=== PATIENT | female | born 1930 | race Caucasian/White ===

== ENCOUNTER 2016-05-17 08:43 | Emergency (ER) | payer OTHER ==
[~2016-05-17] VITALS: Ht 154.9 cm; Wt 61.2 kg
--- NOTE | ~2016-05-17 | EKG ---
[place] [address] [address] [facility] [employer] [place] [address] ELECTROCARDIOGRAM REPORT Name: STUART YANG [id number] Admission: 05/17/16 Attend Phys: Discharge: 05/17/16 Date of : 32 Report #: [id number] THIS REPORT FOR: //name// [facility] ED Test Date: 2016-05-17 Test Time: 10:04:26 Pat Name: STUART YANG Department: Room: Gender: F Cat Breeder: maira : 1930 Requested By: Glenn Bonilla Order Number: [id number] MD: Bright Wagoner Measurements Intervals [place] Rate: 78 P: 48 UT: 166 QRS: -22 QRSD: 98 T: 52 QT: 370 QTc: 422 Interpretive Statements Sinus rhythm Left ventricular hypertrophy Compared to ECG 04/12/2016 14:33:37 Left ventricular hypertrophy now present Sinus tachycardia no longer present Ventricular premature complex(es) no longer present Electronically Signed On 05-18-2016 8:16:53 CDT by Bright Wagoner [email or web address] <ELECTRONICALLY SIGNED> By: Bright Wagoner MD, [facility] 05/18/16 0816 1004 1004 Bright Wagoner MD, [facility] /EPI
[~2016-05-17 08:43] MED LIST: ALBUTEROL2.5 MG/31 INH; ASPIR 8181 MG PO; CARVEDILOL3.125 MG PO; CIPRO250 M1 PO; COLACE100 MG PO; CRANBERRY405 MG PO; CYMBALTA30 MG PO; DAILY VITE1 EACH PO; DUONEB 2.5-0.5 M3 ML INH; ENOXAPARIN30 MG/0.1 SUBQ; FENTANYL PA25 MCG/HR TRANSDERM; IPRAT-ALBUT 0.5-3 ML IH; KLOR-CON 1010 MEQ PO; LASIX 20 MG TAB20 MG PO; LEVAQUIN 500 M500 M9 PO; LIDODERM 5%1 PATC1 TD; LYRICA 75 MG CA75 MG PO; MACROBID 100 M100 M2 PO; MUCINEX TA600 MG/TA2 PO; NEURONTIN 300300 M1 PO; NEURONTIN300 MG PO; NORVASC5 MG PO; NYSTATIN1 EA10; ONDANSETRON HCL4 M2 PO; OXCARBAZEPINE150 MG PO; OYSTER SHELL C500 MG PO; PEG OINTMENT B454 GM MC; PEG3350510 GM PO; PRAVACHOL20 MG PO; PREDNISONE 10 M10 MG PO; PRILOSEC20 MG PO; PULMICORT0.5 MG/21 INH; SENOKOT-S1 TA1 PO; TRAMADOL 50 MG50 MG PO; TYLENOL325 MG PO; VESICARE 5 MG TA5 MG PO; ZINC OXIDE56.7 GM
[2016-05-17 09:14] LABS: ABSOLUTE NEUTROPHILS 6.5 thou/uL (1.4-8.2); BASOPHILS 0.7 % (0.0-2.0); EOSINOPHILS 0.8 % (0.0-3.0); HEMATOCRIT 36.5 % (37.0-47.0); HEMOGLOBIN 12.1 gm/dL (12.0-15.0); LYMPHOCYTES 10.7 % (24.0-44.0); MCH 29.9 pg (26.0-34.0); MCHC 33.1 g/dL (28.0-37.0); MCV 90.4 fL (80.0-100.0); MONOCYTES 9.1 % (1.0-8.0); PLATELET COUNT 284 thou/uL (150-400); POLYS 78.7 % (36.0-66.0); RBC 4.04 mil/uL (4.20-5.00); RDW 18.3 % (10.5-14.5); WBC 8.3 thou/uL (4.0-11.0)
[2016-05-17 09:15] LABS: MANUAL DIFF NO
[2016-05-17 09:20] LABS: ANION GAP 3 mmol/L (7-16); BUN 22 mg/dL (7-18); CALCIUM 8.6 mg/dL (8.5-10.1); CHLORIDE 106 mmol/L (98-107); CO2 33 mmol/L (21-32); CREATININE 1.1 mg/dL (0.6-1.3); GLUCOSE 105 mg/dL (70-99); POTASSIUM 4.3 mmol/L (3.5-5.1); SODIUM 142 mmol/L (136-145)
[2016-05-17 09:27] LABS: ALBUMIN 2.4 g/dL (3.4-5.0); ALKALINE PHOSPHATASE 127 U/L (46-116); MAGNESIUM 2.1 mg/dL (1.8-2.4); SGOT 14 U/L (15-37); SGPT 13 U/L (30-65); TOTAL BILIRUBIN 0.2 mg/dL (<0.1-1.0); TOTAL PROTEIN 6.8 g/dL (6.4-8.2); TROPONIN-I < 0.04 ng/mL (<0.04-0.07)
[2016-05-17 10:03] LABS: URINE BILIRUBIN NEGATIVE (Negative); URINE BLOOD TRACE (Negative); URINE COLOR YELLOW; URINE GLUCOSE-RANDOM* NEGATIVE (Negative); URINE KETONES NEGATIVE (Negative); URINE LEUKOCYTES-REFLEX 1+ (Negative); URINE PROTEIN (DIPSTICK) 1+ (Negative); URINE SPECIFIC GRAVITY 1.025 (1.003-1.035); URINE UROBILINOGEN 0.2 E.U./dl (0.2-1.0)
[2016-05-17 10:19] LABS: CASTS None Seen /LPF (None Seen); CRYSTALS None Seen /LPF (None Seen); SQUAMOUS 0-3 Few /LPF (0-3); URINE RBC None Seen /HPF (0-2); URINE WBC-REFLEX >25 Many /HPF (0-5)
[2016-05-17] MEDS ORDERED: CIPROFLOXACIN500 M1 PO (10:58)
== END 2016-05-17 12:34 ==
LOC: ER 08:43
PROVIDERS: Emergency Medicine
DX: N39.0 Urinary tract infection, site not specified (principal); R41.82 Altered mental status, unspecified; G89.4 Chronic pain syndrome; I25.2 Old myocardial infarction; E78.5 Hyperlipidemia, unspecified; Z90.710 Acquired absence of both cervix and uterus; Z95.5 Presence of coronary angioplasty implant and graft; F17.210 Nicotine dependence, cigarettes, uncomplicated; Z88.0 Allergy status to penicillin; Z88.2 Allergy status to sulfonamides

== ENCOUNTER 2017-11-07 05:43 | Inpatient (IN) | payer OTHER ==
[~2017-11-07] VITALS: Ht 154.9 cm; Wt 45.9 kg
--- NOTE | ~2017-11-07 | EKG ---
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 : 1930 Requested By: Sirena Jacome Order Number: [id number] MD: Nahid Robison Measurements Intervals [place] Rate: 65 P: 29 [place]: 135 QRS: -20 QRSD: 102 T: -1 QT: 403 QTc: 419 Interpretive Statements Sinus rhythm Abnormal R-wave progression, late transition Left ventricular hypertrophy Compared to ECG 11/08/2017 07:17:23 Left ventricular hypertrophy now present T-wave abnormality no longer present Electronically Signed On 11-19-2017 16:52:37 CDT by Nahid Robison [email or web address] <ELECTRONICALLY SIGNED> By: Nahid Robison MD 11/19/17 1652 134 1342 Nahid Robison MD /EPI
--- NOTE | ~2017-11-07 | HC ---
[facility] [place] [address] CONSULTATION Name: STUART YANG Room #: 203-P ADM IN M.R.#: [id number] Admission: 11/07/17 Attend Phys: Sirena Jacome Discharge: Date of : 32 Report #: [id number] THIS REPORT FOR: //name// CC: Dr. Rowdy Jacome [facility] REQUESTING PHYSICIAN: Dr. Reno. CHIEF COMPLAINT: Hypoxic respiratory failure. HISTORY OF PRESENT ILLNESS: The patient is an 87-year-old female who presented initially to [facility] on November 07 from [facility] [place] with altered mental status, found to have UTI, but also acute on chronic hypoxic respiratory failure and this is likely due to her aspiration pneumonia. Unfortunately, she has had significant weakness and has been unable to and for the most part unwilling to participate in therapy. Her son confirms that she has been difficult to get to participate in activities such as therapy to improve her strength overall. The patient was unable to talk to me at this current point in time. She appeared to be drowsy; however, she does wake for periods of time and talks to the nurse. The patient may have altered attention at this time. PAST MEDICAL HISTORY: Hyperlipidemia, coronary artery disease, COPD, chronic hypoxic respiratory failure, rectovesical fistula with multiple recurrence, refused surgical procedure. SOCIAL HISTORY: Former smoker 20 years ago, she quit. Her son is DPOA. ALLERGIES: SULFA AND PENICILLIN. PAST SURGICAL HISTORY: Coronary artery bypass graft 3 vessels 2001, stent, hysterectomy. MEDICATIONS: Multivitamin, omeprazole, VESIcare, calcium carbonate, aspirin, Lyrica, DuoNeb, Trileptal, Senna S, Norvasc, OxyContin. FAMILY HISTORY: Noncontributory. REVIEW OF SYSTEMS: Unable to obtain at this time due to present medical condition and unresponsiveness to lot of questioning. PHYSICAL EXAMINATION: VITAL SIGNS: Temperature 36.6, pulse 65, respirations 12, blood pressure 156/63, 97% on room air. GENERAL: The patient is not alert. She will not awaken to my stimuli, although she does awaken during the day and nurses have confirmed this that she yells out [facility] [address] [place] [address] CONSULTATION Name: STUART YANG Room #: 203-P ADM IN M.R.#: [id number] Admission: 11/07/17 Attend Phys: Sirena Jacome Discharge: Date of : 32 Report #: [id number]. HEENT: Again, unable to fully assess at this time. CARDIOVASCULAR: Regular rate and rhythm. No apparent murmur. RESPIRATORY: Lungs currently anteriorly are clear to auscultation. No acute distress. No accessory muscle use. No wheezing. ABDOMEN: Soft, nontender to palpation times 4, diminished bowel sounds. LABORATORY DATA: Include creatinine 0.54 and NT-proBNP 8412. ASSESSMENT AND PLAN: 1. Acute on chronic hypoxic respiratory failure. I did discuss with the patient's son, Yuniel, and he is amenable and desires to pursue hospice care at [facility]. I will discuss further with field nurse case manager regarding this. The patient has had significant decline in overall participation in rehabilitation therapy. He did not feel she would benefit from this any further and is amenable to hospice care. He also desires for her to be a DNR status at this time as the patient does not currently have capacity for this decision making. We will go ahead and change this code status, we will need to complete an outside the hospital DNR when available. The patient's son unfortunately is leaving the country in one week, but we should be able to make arrangements prior to this. I did discuss what hospice would entail and he is amenable to this at this time. He may have other siblings come to [place] for additional support for the patient. 2. Delirium, appears present at this time, maybe preexisting dementia, hard to tell, but certainly with infections as above, she could have this underlying. I do believe this could affect her overall quality of life and quantity. The patient's son is understanding of this and again desires her to have comfort care at this time. 3. Aspiration pneumonia. Again, this is likely to be recurrent if this represents aspiration with dementia process or other neurologic process. 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 He reports that she would be desiring of hospice care services at this current point in time. She does not appear to be in significant discomfort. I believe that we can likely transition [facility] to [facility] with hospice after evaluation by hospice team. Thank you very much for this consultation. By: 2243 0055 Stephen Sanchez DO /nt
--- NOTE | ~2017-11-07 | EKG ---
[address] [place] [employer] [address] ELECTROCARDIOGRAM REPORT Name: STUART YANG Room #: 203-P ADM IN M.R.#: [id number] Admission: 11/07/17 Attend Phys: Sirena Jacome Discharge: Date of : 32 Report #: [id number] THIS REPORT FOR: //name// [facility] Test Date: 2017-11-08 Test Time: 07:17:23 Pat Name: STUART YANG Department: Room: 203 P Gender: F Monotyper: MARIA ELENA : 1930 Requested By: Bright Wagoner Order Number: [id number] MD: Bright Wagoner Measurements Intervals [place] Rate: 89 P: 50 DC: 170 QRS: -17 QRSD: 125 T: 39 QT: 430 QTc: 524 Interpretive Statements Sinus rhythm Nonspecific T wave abnormality Prolonged QT interval Compared to ECG 11/07/2017 06:03:58 No significant change was found Electronically Signed On 11-08-2017 8:21:10 CDT by Bright Wagoner [email or web address] <ELECTRONICALLY SIGNED> By: Bright Wagoner MD, [facility] 11/08/1721 6 6 Bright Wagoner MD, [facility] /EPI
--- NOTE | ~2017-11-07 | HC ---
[facility] [place] [address] [place] [address] CONSULTATION Name: STUART YANG Room #: 203-P ADM IN M.R.#: [id number] Admission: 11/07/17 Attend Phys: Sirena Jacome Discharge: Date of : 32 Report #: [id number] THIS REPORT FOR: //name// CC: Sirena Jacome Ela Gonsales DATE OF SERVICE: 11/08/2017 REFERRING PHYSICIAN: Dr. Jacome. REASON FOR REFERRAL: Pneumonia. HISTORY OF PRESENT ILLNESS: The patient is an 87-year-old white female who was brought to the Emergency Room with acute mental status change. She is felt to have pneumonia. A pulmonary consultation was requested. [place] [facility] The patient has multiple medical problems including coronary artery disease having undergone coronary bypass surgery, COPD, on chronic oxygen. She was in her usual state of health until yesterday when the staff [place] found that the patient was not in the normal self. The patient had complained of dyspnea, productive cough a few days prior. Chest x-ray on admission shows chronic patchy bilateral infiltrates, increased infiltrates seen in the right mid lung field. PAST MEDICAL HISTORY: As mentioned above. History of COPD, tobacco use, quit 20 years ago, coronary artery disease, undergone coronary artery bypass surgery in 2001, hypercholesterolemia, chronic UTIs due to rectovesical fistula for which the patient refused surgery in 2016, fecal incontinence, constipation, neuropathy, poor short term memory. PAST SURGICAL HISTORY: Hysterectomy, coronary artery bypass surgery as mentioned above. ALLERGIES: PENICILLIN, WHICH CAUSES HIVES. BACTRIM, REACTIONS NOT SPECIFIED. HOME MEDICATIONS: Reviewed. This includes multivitamins, Prilosec, aspirin, Lyrica, DuoNeb, oxcarbazepine, Mucinex, Senokot, Colace, Norvasc, OxyContin. FAMILY HISTORY: Noncontributory. SOCIAL HISTORY: She has smoked in the past, but quit more than 20 years ago. She denies any alcohol use. She [place] [facility] She has a son who lives in town. [facility] [address] [place] [address] CONSULTATION Name: STUART YANG Room #: 203-P [facility] IN [facility].#: [id number] Admission: 11/07/17 Attend Phys: Sirena Jacome Discharge: Date of : 32 Report #: [id number] REVIEW OF SYSTEMS: As mentioned above, otherwise notable for progressive weakness and debility. PHYSICAL EXAMINATION: GENERAL: She is awake, in no distress. VITAL SIGNS: Temperature is 98.9 degrees Fahrenheit, pulse is 90, respiratory rate is 20, blood pressure 128/62 mmHg, saturation 92%. HEENT: Unremarkable. NECK: Supple, without lymphadenopathy or thyromegaly. CHEST: Breath sounds are coarse bilaterally with mild expiratory wheezes. CARDIOVASCULAR: Normal S1, S2. No murmurs or gallop. There is no JVD. There is no carotid bruit. Pulses are 2+/4+ bilaterally. ABDOMEN: Soft, nontender, no organomegaly or masses felt. GENITOURINARY: Deferred. RECTAL: Deferred. EXTREMITIES: There is no edema, cyanosis or clubbing. MUSCULOSKELETAL: Notable for moderate muscle atrophy. LABORATORY DATA: Portable chest x-ray as mentioned above showing chronic bilateral interstitial infiltrates with increased infiltrates seen in the right mid lung field. . normal BNP is 8400. Procalcitonin level is 0.96. Echocardiogram showed ejection fraction 45%, mildly depressed LV function, mild aortic regurgitation, mild mitral regurgitation, pulmonary artery pressure measuring 42 mmHg. KUB shows nonspecific bowel gas pattern. IMPRESSION: 1. Acute hypoxic respiratory failure, likely due to exacerbation of chronic obstructive pulmonary disease and probable pneumonia. 2. Right-sided infiltrates, probable pneumonia. 3. Chronic obstructive pulmonary disease exacerbation, oxygen dependent. Chest x-ray also suggests chronic interstitial infiltrates, probably pulmonary fibrosis and/or bronchiectasis. 4. Acute kidney injury. 5. Urinary tract infection. 6. Elevated troponin, coronary artery disease, coronary bypass surgery. 7. Neuropathy. 8. Chronic constipation. 9. Generalized weakness. RECOMMENDATION: Agree with current care, broad-spectrum antibiotics, corticosteroids, bronchodilators. Deep venous thrombosis and gastrointestinal prophylaxis recommended. [address] [address] CONSULTATION Name: STUART YANG Room #: 203-P ADM IN M.R.#: [id number] Admission: 11/07/17 Attend Phys: Sirena Jacoem Discharge: Date of : 32 Report #: [id number] Thank you for this consultation. <ELECTRONICALLY SIGNED> By: Jett Flores MD 11/09/17 1352 1804 2100 Jett Flores MD /nt
--- NOTE | ~2017-11-07 | EKG ---
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 <ELECTRONICALLY SIGNED> By: Bright Wagoner MD, [facility] 11/07/17 0830 0603 Bright Wagoner MD, [facility] /EPI
--- NOTE | ~2017-11-07 | EKG ---
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: UNKNOWN : 1930 Requested By: Cristina Godoy Order Number: [id number] MD: Nahid Robison Measurements Intervals [place] Rate: 59 P: 28 AR: 158 QRS: -20 QRSD: 103 T: 31 QT: 411 QTc: 408 Interpretive Statements Sinus rhythm Left ventricular hypertrophy Compared to ECG 11/08/2017 07:17:23 Left ventricular hypertrophy now present T-wave abnormality no longer present Prolonged QT interval no longer present Electronically Signed On 11-19-2017 17:37:38 CDT by Nahid Robison [email or web address] <ELECTRONICALLY SIGNED> By: Nahid Robison MD 11/19/17 1737 2249 2249 Nahid Robison MD /EPI
--- NOTE | ~2017-11-07 | HC ---
[facility] [place] [address] CONSULTATION Name: STUART YANG Room #: 203-P ADM IN M.R.#: [id number] Admission: 11/07/17 Attend Phys: Sirena Jacome Discharge: Date of : 32 Report #: [id number] THIS REPORT FOR: //name// CC: Sirena Jacome Ela Gonsales REASON FOR CONSULTATION: Elevated troponin. HISTORY OF PRESENT ILLNESS: The patient is an 87-year-old woman who is a resident of the [facility]. She has a history of oxygen-dependent lung disease and coronary artery disease with remote stenting. She now presents with altered mental status and hypoxemia as well as a fever close to 103 degrees. In this setting, a troponin was ordered and minimally elevated at 0.49. I was asked to see her in this regard. She is much more alert and coherent and has no recollection of how she ended up in the hospital. She denies chest pain, pressure or ischemic type symptoms. She has had a productive cough. She has right-sided left lateral chest pain with coughing. No orthopnea, paroxysmal nocturnal dyspnea or lower extremity edema. No history of near syncope or syncope. MEDICATIONS: Her medicines include inhalers, fentanyl patch, multivitamin, amlodipine 5 mg daily, 2 liters of continuous oxygen, baby aspirin, VESIcare, Colace, Lyrica 75 mg twice daily, bases, oxcarbazepine 150 mg twice daily and Mucinex. PAST MEDICAL HISTORY: Her past history and medical records have been reviewed and included a history of coronary artery disease with bypass surgery in 2001 in [place], chronic diastolic heart failure, history of falls, recurrent bladder infections, chronic hypoxemic respiratory failure and history of prior aspiration. SOCIAL HISTORY: She is a former smoker. She has a son who lives in town. FAMILY HISTORY: Unremarkable for premature coronary artery disease. REVIEW OF SYSTEMS: All systems negative except as that noted above. PHYSICAL EXAMINATION: GENERAL: A frail elderly woman who is alert and in no distress. VITAL SIGNS: Blood pressure is 114/60, heart rate is 73 and regular. She is currently afebrile. She was febrile earlier today to 102.7 degrees. HEENT: There are neither xanthelasma, subcutaneous xanthomata, oral mucosal or digital cyanosis or kyphoscoliosis present. CHEST: Reveals diffuse end-expiratory wheezes. CARDIAC: Regular rate and rhythm with normal S1 and S2. ABDOMEN: Soft and nontender. EXTREMITIES: Without cyanosis, clubbing or edema. Radial pulses are 2+. [facility] [address] [place] [address] CONSULTATION Name: STUART YANG Room #: 203-P [facility] IN [facility].#: [id number] Admission: 11/07/17 Attend Phys: Sirena Jacome Discharge: Date of : 32 Report #: [id number] NEUROLOGICAL: She is alert with a nonfocal exam. CARDIOLOGICAL DATA: EKG sinus rhythm with LVH and repolarization abnormality. LABORATORY DATA: Sodium is 144, potassium 4.0 and creatinine 1.4. Troponin 0.49. White count 11.3 with 90% neutrophils, hemoglobin 12, hematocrit 37 and platelet count 160. Blood gas: pH 7.32, pCO2 of 53, pO2 is 59 and lactate is elevated. RADIOLOGICAL DATA: Chest x-ray demonstrates normal heart size and vascularity, patchy atelectasis or infiltrate across the right lung and right medial base and some moderate infiltrate in the left lung base. IMPRESSION: 1. Hypoxemic respiratory failure. 2. Pneumonia. 3. Chronic obstructive pulmonary disease exacerbation. 4. Small troponin rise consistent with type 2 myocardial infarction in the setting of high fevers, hypoxemia, bronchospasm and sepsis. 5. Coronary artery disease with remote bypass. 6. Chronic diastolic heart failure. RECOMMENDATIONS: 1. Continued efforts directed towards treatment of her underlying lung disease and infection/sepsis. 2. Continued use of low dose daily aspirin. Beta blockade is contraindicated with her ongoing wheezing. 3. Consider evaluation for aspiration. 4. I have reviewed today's echocardiogram, which demonstrates overall systolic function at the lower limits of normal, EF 50% and moderate pulmonary hypertension. Thank you for asking me to participate in her care. <ELECTRONICALLY SIGNED> By: Bright Wagoner MD, [facility]ACC 11/22/17 0827 1556 2108 Bright Wagoner MD, FACC /nt
--- NOTE | ~2017-11-07 | HC ---
[facility] [place] [address] CONSULTATION Name: STUART YANG Room #: 203-P [facility] IN M.R.#: [id number] Admission: 11/07/17 Attend Phys: Sirena Jacome Discharge: Date of : 32 Report #: [id number] THIS REPORT FOR: //name// CC: Sirena Jacome Ela Gonsales DATE OF SERVICE: 11/13/2017 HISTORY OF PRESENT ILLNESS: This is an 87-year-old female patient who was evaluated by me for headache. This patient gives a history that she had shingles on the forehead around 1999. Since then, she has intermittent headache. When the headache comes, it is very severe. It is a neuralgic pain. She does not know what brings it on, but it just become intermittently become worse. To check for any temporal arteritis, his sed rate was done and that did not show any abnormality. REVIEW OF SYSTEMS: Indicates she has pretty profound medical problem. She is very short of breath. She is being followed by multiple consultants, which include Cardiology and bridge manager. She use fentanyl patch. She had altered mental status, she has fever. She has a history of coronary artery disease, diastolic heart failure, recurrent bladder infection. As mentioned above, she is being followed by multiple consultants. She has a history of hysterectomy. She had GI problems in the past. She had fecal incontinence. She has a history of neuropathy and she believes her memory is poor. This was her relevant 14-point review of systems. She believes her vision is at her baseline. She is short of breath. She has GI, , cardiac, respiratory symptom. She also has musculoskeletal symptoms. Constitutional symptoms as described above. She denies any significant psychiatric or recent allergic symptom. PAST MEDICAL HISTORY: Positive for similar neuralgic pain. FAMILY HISTORY: Negative for any early age stroke. SOCIAL HISTORY: She used to smoke. PHYSICAL EXAMINATION: Indicate she is alert. She is responsive. She can follow simple commands. Her speech, concentration, fund of knowledge and memory is at her baseline. Cranial nerve examination 2-12 mostly looks unremarkable. Strength, sensation, reflexes, tones are symmetrical. No cerebellar sign. I could not look at the patient's fundus. She is moderately built individual. Her vision and hearing is adequate. She does not have any dysmorphic facial features. Pulses are difficult to feel. She has no edema, cyanosis or jaundice. She is short of breath and having rhonchi. Cardiac examination is unremarkable. Blood pressure is 149/65, respirations 18, pulse is 75, temperature is 97.8. [facility] [address] [place] [address] CONSULTATION Name: STUART YANG Room #: [facility] IN M.R.#: [id number] Admission: 11/07/17 Attend Phys: Sirena Jacome Discharge: Date of : 32 Report #: [id number] LABORATORY DATA: Indicate white count of 7.7. GFR is only 43. She did not have any imaging study of the brain. 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 It is in the facial distribution. She was just started on gabapentin. We will see how she does with gabapentin. If that is ineffective, we might try Tegretol. To complete the workup, we will do an imaging study of the brain as a routine test, probably tomorrow. RECOMMENDATION: I discussed all of it with the patient. She understands all those. I discussed with her option and she wants to follow this plan and we will do that. Thank you very much for this referral. <ELECTRONICALLY SIGNED> By: Augustus Echols MD 11/15/17 0851 1942 0509 Augustus Echols MD /nt
--- NOTE | ~2017-11-07 | 2DMMODE ---
[facility] [address] [place] [address] 2 D/M-MODE ECHOCARDIOGRAM Name: STUART YANG Room #: 203-P ADM IN M.R.#: [id number] Admission: 11/07/17 Attend Phys: Sirena Flores Discharge: Date of : 34 Date of Service: 11/07/17 1430 Report #: [id number] THIS REPORT FOR: //name// APPROVED REPORT Study performed: 11/07/2017 12:44:07 EXAM: Comprehensive 2D, Doppler, and color-flow Echocardiogram Patient Location: Bedside Room #: 203 Status: routine BSA: 1.47 HR: 73 bpm BP: 108/50 mmHg Rhythm: NSR Other Information Study Quality: Good Risk Factors: Cardiac Risk Factors: Hyperlipidemia Indications Congestive Heart Failure COPD Respiratory Failure S/P CABG Elevated BNP 2D Dimensions IVSd: 12.70 (7-11mm) LVOT Diam: 20.00 (18-24mm) LVDd: 57.30 mm PWd: 11.50 (7-11mm) Ascending Ao: 33.18 (22-36mm) LVDs: 45.94 (25-40mm) Aortic Root: 29.69 mm LV Single Plane 4CH: 46.13 % LV Single Plane 2CH: 43.75 % Valdovinos's LVEF: 44.94 % Biplane EF: 43.6 % Volumes Left Atrial Volume (Systole) Single Plane 4CH: 97.30 mL Single Plane 2CH: 78.71 mL LA ESV Index: 62.00 mL/m2 Aortic Valve [facility] [address] [place] [address] 2 D/M-MODE ECHOCARDIOGRAM Name: STUART YANG Room #: 203-P ADM IN M.R.#: [id number] Admission: 11/07/17 Attend Phys: Sirena Flores Discharge: Date of : 34 Date of Service: 11/07/17 1430 Report #: [id number] AoV Peak Bruce.: 1.78 m/s AO Peak Gr.: 13.54 mmHg LVOT Max P.18 mmHg LVOT Max V: 0.89 m/s BETTY Vmax: 1.56 cm2 AI Vmax: 3.51 m/s AI [place]: 2.16 m/s2 AI PHT: 471.27 ms Mitral Valve E/A Ratio: 1.5 MV Decel. Time: 179.09 ms MV E Max Bruce.: 0.93 m/s MV A Bruce.: 0.63 m/s MV PHT: 51.94 ms IVRT: 69.20 ms TDI E/Lateral E': 11.63 E/Medial E': 18.60 Medial E' Bruce.: 0.05 m/s Lateral E' Bruce.: 0.08 m/s Pulmonary Valve PV Peak Bruce.: 0.65 m/s PV Peak Gr.: 1.68 mmHg HI End Vmax: 1.53 m/s Pulmonary Vein P Vein S: 0.48 m/s P Vein A: 0.14 m/s P Vein D: 0.36 m/s P Vein A Dur.: 92.3 msec P Vein S/D Ratio: 1.33 Tricuspid Valve TR Peak Bruce.: 2.96 m/s RAP Estimate: 7.00 mmHg TR Peak Gr.: 35.13 mmHg PA Pressure: 42.00 mmHg Left Ventricle Left ventricle is borderline dilated. Mild concentric left ventricular hypertrophy. Left ventricular systolic function is mildly depressed. Inferoseptal and inferior base hypokinesis LVEF is 45-50%. The left ventricular diastolic function is normal. Right Ventricle Right ventricle is mildly dilated. The right ventricular systolic function is normal. [facility] [address] [place] [address] 2 D/M-MODE ECHOCARDIOGRAM Name: STUART YANG Room #: 203-P [facility] IN M.R.#: [id number] Admission: 11/07/17 Attend Phys: Sirena Floers Discharge: Date of : 34 Date of Service: 11/07/17 1430 Report #: [id number] Left atrium is severely dilated. Right atrium is dilated. Aortic Valve Aortic valve is calcified, trileaflet. Mild aortic regurgitation. There is no aortic valvular stenosis. Mitral Valve Moderate mitral annular calcification. Mild mitral regurgitation. No evidence of mitral valve stenosis. Tricuspid Valve The tricuspid valve is normal in structure. Mild tricuspid regurgitation. Pulmonary artery pressure is 42 mmHg. Pulmonic Valve The pulmonary valve is normal in structure. Moderate pulmonic regurgitation. Great Vessels The aortic root is normal in size. IVC is normal in size and collapses >50% with inspiration. Pericardium There is no pericardial effusion. <Conclusion> Left ventricular systolic function is mildly depressed. Inferoseptal and inferior base hypokinesis LVEF is 45-50%. Both atria are dilated. Aortic valve is calcified, trileaflet. Mild aortic regurgitation, no stenosis. Moderate mitral annular calcification. Mild mitral regurgitation. Mild tricuspid regurgitation. Pulmonary artery pressure is 42 mmHg. There is no pericardial effusion. <ELECTRONICALLY SIGNED> By: Bright Wagoner MD, FACC 11/07/17 1430 1430 1430 Bright Wagoner MD, FACC /INF
--- NOTE | ~2017-11-07 | HC ---
[facility] [place] [address] CONSULTATION Name: STUART YANG Room #: 203-P [facility] IN M.R.#: [id number] Admission: 11/07/17 Attend Phys: Sirena Jacome Discharge: Date of : 34 Report #: [id number] THIS REPORT FOR: //name// CC: Sirena Jacome Ela Gonsales DATE OF SERVICE: 11/11/2017 REASON FOR CONSULTATION: The patient is an 87-year-old woman with dysphagia and also right upper quadrant pain. HISTORY OF PRESENT ILLNESS: This patient has a history of multiple medical problems. She is a poor historian. Her major problem is chronic obstructive pulmonary disease, and she is a former cigarette smoker. She has advanced disease and she does have oxygen available to her all the time, but she says a lot of time, she just does not wear it. She is admitted with respiratory difficulties on this occasion. She complained today of some dysphagia, and GI evaluation is requested. Review of the records indicates that she has had previous dysphagia and previous esophageal dilation with upper endoscopy and dilation performed by Dr. Fofana in March 2016. A definite stricture was not described, but she was dilated with a 48-Kyrgyz dilator. Also, biopsy of gastritis were negative for H. pylori, a colon polyp was removed and was a fundic gland polyp. She also had biopsy of a nodule in the esophagus. 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 The patient does not recall dilation in the past. She reports she has not had any problems recently. She notes that when she eats, sometimes things will hang up in her mid esophagus. She will have to drink water to help it pass. She has not had to vomit or regurgitate food. She also reports she has had heartburn problems and does feel fluid come up the back of the throat from time to time and some burning in her chest from time to time. In addition, she complains of right upper quadrant pain, which has been present for a number of weeks. This pain may come and go. Today, the pain is minimal, although she notes there is still some pain there. Pain often worsens with eating. She did have a CT chest, abdomen and pelvis in March 2016. 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 I do believe she has had surgery possibly because of her lung disease. She also denies use of nonsteroidals. PAST MEDICAL HISTORY: Notable for atrial ectopy. She has had congestive heart failure and also respiratory failure. She has chronic kidney disease and chronic pain. She has had dysphagia in the past. She has been treated for [address] [place] [address] CONSULTATION Name: STUART YANG Room #: 203-P ADM IN M.R.#: [id number] Admission: 11/07/17 Attend Phys: Sirena Jacome Discharge: Date of : 34 Report #: [id number] pneumonia, also has had sciatica and urinary tract infections. She has had triple bypass surgery in 2001. She has elevated cholesterol. She has had superficial blood clots in the past. Also, has had constipation. She has had a previous hysterectomy and also has had fecal incontinence. MEDICATIONS ON ADMISSION: The patient cannot tell me her medicines. She tells me she does not take a lot. In the computer database mentioned are albuterol and ipratropium 3 mL every 4 hours, Norvasc 5 mg daily, aspirin 81 mg daily, docusate 100 mg daily, famotidine 20 mg at bedtime, Mucinex 600 mg q. 12 hours, ibuprofen 600 mg every 6 hours as needed, multivitamin daily, ondansetron 4 mg as needed, oxcarbazepine 150 mg twice daily, oxycodone, OxyIR 15 mg daily, MiraLax 17 g daily, Lyrica 75 mg twice daily, Senokot-S 2 tablets at bedtime, VESIcare 5 mg at bedtime. FAMILY HISTORY: No family history of colon cancer or ulcer disease. SOCIAL HISTORY: She is a former cigarette smoker. She does not consume alcohol. Reports she has never consumed much alcohol. REVIEW OF SYSTEMS: GENERAL: She reports there has been no change in weight, fever or chills. CENTRAL NERVOUS SYSTEM: No focal weakness, loss of conscious, seizures or strokes. She does have chronic pain. HEENT: No change in vision or hearing or sores in the mouth. PULMONARY: She has been coughing a lot more recently. She has chronic obstructive pulmonary disease and does have oxygen at the nursing facility. GASTROINTESTINAL: She reports some reflux symptoms, also constipation. No rectal bleeding. GENITOURINARY: Urinary tract infections. GYNECOLOGIC: Colovaginal fistula. According to the notes, she has refused surgery in the past. MUSCULOSKELETAL: Multiple arthralgias and myalgias. SKIN: Multiple ecchymotic areas. PSYCHIATRIC: She denies depression, anxiety or bipolar illness. ENDOCRINE: She denies diabetes or thyroid problems. HEMATOLOGIC: No bleeding, bruising or malignancy. PHYSICAL EXAMINATION: GENERAL: The patient is a well-developed, well-nourished woman, in no acute distress. She is wearing oxygen 3 liters per nasal cannula. HEENT: Anicteric. Pupils equal and round. Oropharynx clear. NECK: Supple. CHEST: Clear. HEART: Regular rate and rhythm, normal S1, normal S2. ABDOMEN: Normal bowel sounds, soft, mild to modest tenderness to palpation in the right upper quadrant. No rebound or rigidity. I do not appreciate [facility] [address] [place] [address] CONSULTATION Name: STUART YANG Room #: 203-P ADM IN M.R.#: [id number] Admission: 11/07/17 Attend Phys: Sirena Jacome Discharge: Date of : 34 Report #: [id number] hepatosplenomegaly or masses. Lesser tenderness in the left upper quadrant. EXTREMITIES: Without cyanosis, clubbing or edema. NEUROLOGIC: Oriented to person, place and time. Moves all 4 extremities well. LABORATORY DATA: White count is now normal at 9.8, hemoglobin 10.9, platelet count 131,000. Sodium 147, potassium 3.7, chloride 111, CO2 of 31, BUN of 36, creatinine 1.1. On this admission, her liver function studies were unremarkable except for an alkaline phosphatase of 136. ASSESSMENT: 1. Dysphagia, recurrent. 2. Right upper quadrant pain. 3. Chronic obstructive pulmonary disease. 4. Coronary artery disease. 5. Chronic pain. 6. Use of narcotics. 7. Colovaginal fistula, discussed with the patient. RECOMMENDATIONS: 1. Upper endoscopy, possibly tomorrow, depending on her pulmonary status. 2. Ultrasound of the abdomen for further evaluation of pain. 3. Further evaluation of the abdomen depending on clinical course. 4. PPI due to reflux symptoms. <ELECTRONICALLY SIGNED> By: Giancalro Metcalf MD 11/14/17 1507 1417 2110 Giancarlo Metcalf MD /nt
[~2017-11-07 05:43] MED LIST changes: +CIPROFLOXACIN500 M1 PO; +MIRALAX17 G1 PO; -PEG3350510 GM PO
[2017-11-07 05:44] VITALS: BP 127/60
[2017-11-07 05:59] LABS: BE(vivo) 0.5 mmol/L (-2 to +3); HCO3 27.2 mmol/L (22.0-26.0); PCO2 53.1 mmHg (35.0-45.0); PO2 59.6 mmHg (80.0-100.0); sO2 88.7 % (92.0-98.0)
[2017-11-07 06:00] LABS: pH 7.328 (7.360-7.450)
[2017-11-07 06:17] LABS: ABSOLUTE NEUTROPHILS 10.2 thou/uL (1.4-8.2); BASOPHILS 0.3 % (0.0-2.0); EOSINOPHILS 0.2 % (0.0-3.0); HEMATOCRIT 37.9 % (37.0-47.0); HEMOGLOBIN 12.5 gm/dL (12.0-15.0); LYMPHOCYTES 3.6 % (24.0-44.0); MCH 29.1 pg (26.0-34.0); MCV 88.1 fL (80.0-100.0); MONOCYTES 5.5 % (1.0-8.0); PLATELET COUNT 160 thou/uL (150-400); POLYS 90.4 % (36.0-66.0); RBC 4.31 mil/uL (4.20-5.00); WBC 11.3 thou/uL (4.0-11.0)
[2017-11-07 06:21] LABS: CALCIUM 8.7 mg/dL (8.5-10.1); CREATININE 1.4 mg/dL (0.6-1.0)
[2017-11-07 06:29] LABS: TOTAL BILIRUBIN 0.4 mg/dL (<0.1-1.0); TOTAL PROTEIN 7.3 g/dL (6.4-8.2); TROPONIN-I 0.06 ng/mL (<0.06)
[2017-11-07 06:40] LABS: URINE BILIRUBIN NEGATIVE (Negative); URINE BLOOD 1+ (Negative); URINE CLARITY CLEAR; URINE COLOR YELLOW; URINE GLUCOSE-RANDOM* NEGATIVE (Negative); URINE KETONES NEGATIVE (Negative); URINE NITRITE-REFLEX NEGATIVE (Negative); URINE PROTEIN (DIPSTICK) 1+ (Negative); URINE UROBILINOGEN 0.2 E.U./dl (0.2-1.0)
[2017-11-07 06:41] LABS: URINE LEUKOCYTES-REFLEX 1+ (Negative)
[2017-11-07 06:55] LABS: BACTERIA-REFLEX >30 Many /HPF (None Seen); CASTS None Seen /LPF (None Seen); CRYSTALS None Seen /LPF (None Seen); SQUAMOUS 0-3 Few /LPF (0-3); URINE RBC 3-10 Few /HPF (0-2); URINE WBC-REFLEX >25 Many /HPF (0-5); WBC CLUMPS Few (None Seen)
[2017-11-07] MEDS ORDERED: OXYCODONE HCL15 MG PO (07:00)
[2017-11-07 09:19] LABS: TSH 0.814 uIU/mL (0.358-3.740)
[2017-11-07 09:58] VITALS: BP 108/50
[2017-11-07] MEDS ORDERED: ONDANSETRON HCL4 M2 PO (11:17)
[2017-11-07] MEDS ORDERED: PEPCID20 MG PO (11:17)
[2017-11-07] MEDS ORDERED: IBUPROFEN 600600 M1 PO (11:17)
[2017-11-07 11:30] VITALS: BP 108/50
[2017-11-07 15:15] VITALS: BP 114/60
[2017-11-07 19:14] VITALS: BP 101/61
[2017-11-08 03:08] LABS: CALCIUM 8.4 mg/dL (8.5-10.1); CREATININE 1.4 mg/dL (0.6-1.0); MAGNESIUM 1.7 mg/dL (1.8-2.4); POTASSIUM 3.8 mmol/L (3.5-5.1)
[2017-11-08 03:11] LABS: ABSOLUTE NEUTROPHILS 11.1 thou/uL (1.4-8.2); HEMATOCRIT 30.6 % (37.0-47.0); LYMPHOCYTES 3.6 % (24.0-44.0); MCH 28.4 pg (26.0-34.0); MCHC 31.8 g/dL (28.0-37.0); MCV 89.5 fL (80.0-100.0); MONOCYTES 4.2 % (1.0-8.0); PLATELET COUNT 105 thou/uL (150-400); POLYS 92.2 % (36.0-66.0); RBC 3.42 mil/uL (4.20-5.00); RDW 15.4 % (10.5-14.5)
[2017-11-08 03:12] LABS: HEMOGLOBIN 9.7 gm/dL (12.0-15.0)
[2017-11-08 04:30] VITALS: BP 117/57
[2017-11-08 08:28] VITALS: BP 130/63
[2017-11-08 11:48] VITALS: BP 128/62
[2017-11-08 15:44] VITALS: BP 125/65
[2017-11-08 19:50] VITALS: BP 145/82
[2017-11-09 03:24] VITALS: BP 174/87
[2017-11-09 04:32] LABS: HEMATOCRIT 31.2 % (37.0-47.0); HEMOGLOBIN 10.1 gm/dL (12.0-15.0); MCH 28.5 pg (26.0-34.0); MCHC 32.2 g/dL (28.0-37.0); MCV 88.7 fL (80.0-100.0); RBC 3.52 mil/uL (4.20-5.00); RDW 15.3 % (10.5-14.5); WBC 11.4 thou/uL (4.0-11.0)
[2017-11-09 04:50] LABS: ALBUMIN 2.2 g/dL (3.4-5.0); CALCIUM 8.2 mg/dL (8.5-10.1); CREATININE 1.1 mg/dL (0.6-1.0); PHOSPHORUS 3.7 mg/dL (2.5-4.9); POTASSIUM 3.8 mmol/L (3.5-5.1); TROPONIN-I 0.21 ng/mL (<0.06)
[2017-11-09 07:10] VITALS: BP 156/63
[2017-11-09 11:30] VITALS: BP 150/80
[2017-11-09 15:25] VITALS: BP 140/61
[2017-11-09 19:50] VITALS: BP 176/90
[2017-11-09 23:17] VITALS: BP 184/94
[2017-11-10 04:03] VITALS: BP 183/90
[2017-11-10 04:14] LABS: HEMATOCRIT 33.9 % (37.0-47.0); HEMOGLOBIN 10.9 gm/dL (12.0-15.0); MCH 28.5 pg (26.0-34.0); MCHC 32.2 g/dL (28.0-37.0); MCV 88.3 fL (80.0-100.0); RBC 3.84 mil/uL (4.20-5.00); RDW 15.3 % (10.5-14.5); WBC 9.8 thou/uL (4.0-11.0)
[2017-11-10 04:25] LABS: ALBUMIN 2.6 g/dL (3.4-5.0); CALCIUM 9.2 mg/dL (8.5-10.1); CREATININE 1.2 mg/dL (0.6-1.0); PHOSPHORUS 3.8 mg/dL (2.5-4.9)
[2017-11-10 07:05] VITALS: BP 143/80
[2017-11-10 11:20] VITALS: BP 138/95
[2017-11-10 16:15] VITALS: BP 170/85
[2017-11-10 20:02] VITALS: BP 163/70
[2017-11-11 03:16] VITALS: BP 161/71
[2017-11-11 04:50] LABS: ALBUMIN 2.6 g/dL (3.4-5.0); CALCIUM 8.9 mg/dL (8.5-10.1); CREATININE 1.1 mg/dL (0.6-1.0); PHOSPHORUS 3.3 mg/dL (2.5-4.9); POTASSIUM 3.7 mmol/L (3.5-5.1)
[2017-11-11 08:20] VITALS: BP 153/82
[2017-11-11 11:15] VITALS: BP 1127/73; BP 127/73
[2017-11-11 15:30] VITALS: BP 156/86
[2017-11-11 20:28] VITALS: BP 135/52
[2017-11-12 03:41] LABS: HEMATOCRIT 31.5 % (37.0-47.0); HEMOGLOBIN 10.3 gm/dL (12.0-15.0); MCH 28.4 pg (26.0-34.0); MCHC 32.7 g/dL (28.0-37.0); RBC 3.62 mil/uL (4.20-5.00); WBC 7.7 thou/uL (4.0-11.0)
[2017-11-12 04:04] LABS: ALBUMIN 2.4 g/dL (3.4-5.0); CALCIUM 8.4 mg/dL (8.5-10.1); CREATININE 1.2 mg/dL (0.6-1.0); PHOSPHORUS 2.9 mg/dL (2.5-4.9); POTASSIUM 4.1 mmol/L (3.5-5.1)
[2017-11-12 05:37] VITALS: BP 155/75
[2017-11-12 08:30] VITALS: BP 149/83
[2017-11-12 12:20] VITALS: BP 157/69
[2017-11-12 16:00] VITALS: BP 150/69
[2017-11-12 20:50] VITALS: BP 129/61
[2017-11-13 04:02] VITALS: BP 143/66
[2017-11-13 07:30] VITALS: BP 140/56
[2017-11-13 11:20] VITALS: BP 92/51
[2017-11-13 15:55] VITALS: BP 130/60
[2017-11-13 19:21] VITALS: BP 149/65
[2017-11-13 23:25] VITALS: BP 149/65
[2017-11-14 03:24] VITALS: BP 162/82
[2017-11-14 07:37] VITALS: BP 151/84
[2017-11-14 11:14] VITALS: BP 141/60
[2017-11-14 13:39] VITALS: BP 133/55
[2017-11-14 16:12] VITALS: BP 159/71
[2017-11-14 20:33] VITALS: BP 150/53
[2017-11-15 04:05] VITALS: BP 144/59
[2017-11-15 07:04] LABS: HEMATOCRIT 33.1 % (37.0-47.0); HEMOGLOBIN 11.1 gm/dL (12.0-15.0); MCH 29.2 pg (26.0-34.0); MCHC 33.5 g/dL (28.0-37.0); MCV 87.4 fL (80.0-100.0); RBC 3.79 mil/uL (4.20-5.00); WBC 6.9 thou/uL (4.0-11.0)
[2017-11-15 07:19] LABS: ALBUMIN 2.4 g/dL (3.4-5.0); CALCIUM 8.2 mg/dL (8.5-10.1); CREATININE 1.1 mg/dL (0.6-1.0); MAGNESIUM 2.2 mg/dL (1.8-2.4); PHOSPHORUS 3.9 mg/dL (2.5-4.9); POTASSIUM 4.2 mmol/L (3.5-5.1)
[2017-11-15 07:39] VITALS: BP 158/79
[2017-11-15 11:35] VITALS: BP 157/65
[2017-11-15 15:45] VITALS: BP 146/63
[2017-11-15 19:23] VITALS: BP 136/70
[2017-11-16 04:52] LABS: ALBUMIN 2.3 g/dL (3.4-5.0); ANION GAP < 0 mmol/L (7-16); BUN 28 mg/dL (7-18); CALCIUM 7.7 mg/dL (8.5-10.1); CHLORIDE 108 mmol/L (98-107); CO2 37 mmol/L (21-32); CREATININE 0.9 mg/dL (0.6-1.0); GLUCOSE 96 mg/dL (74-106); PHOSPHORUS 4.3 mg/dL (2.5-4.9); POTASSIUM 4.2 mmol/L (3.5-5.1); SODIUM 144 mmol/L (136-145)
[2017-11-16 04:55] VITALS: BP 133/53
[2017-11-16 08:02] VITALS: BP 128/51
[2017-11-16 12:19] VITALS: BP 166/70
[2017-11-16 16:09] VITALS: BP 128/54
[2017-11-16 20:26] VITALS: BP 182/75
[2017-11-17 00:03] VITALS: BP 149/69
[2017-11-17 04:07] VITALS: BP 176/86
[2017-11-17 07:22] VITALS: BP 150/56
[2017-11-17 09:38] LABS: ABSOLUTE NEUTROPHILS 9.3 thou/uL (1.4-8.2); BASOPHILS 0.6 % (0.0-2.0); EOSINOPHILS 0.8 % (0.0-3.0); HEMOGLOBIN 10.5 gm/dL (12.0-15.0); LYMPHOCYTES 10.8 % (24.0-44.0); MCH 28.8 pg (26.0-34.0); MCHC 32.8 g/dL (28.0-37.0); MCV 87.7 fL (80.0-100.0); MONOCYTES 7.4 % (1.0-8.0); PLATELET COUNT 117 thou/uL (150-400); POLYS 80.4 % (36.0-66.0); RBC 3.65 mil/uL (4.20-5.00); RDW 14.7 % (10.5-14.5); WBC 11.6 thou/uL (4.0-11.0)
[2017-11-17 09:47] LABS: POTASSIUM 4.7 mmol/L (3.5-5.1)
[2017-11-17 11:59] VITALS: BP 174/72
[2017-11-17 17:02] VITALS: BP 153/74
[2017-11-17 19:49] VITALS: BP 166/78
[2017-11-18 04:47] VITALS: BP 160/76
[2017-11-18 04:52] LABS: CALCIUM 8.5 mg/dL (8.5-10.1); CREATININE 0.9 mg/dL (0.6-1.0); POTASSIUM 5.1 mmol/L (3.5-5.1)
[2017-11-18 05:33] LABS: HEMATOCRIT 33.7 % (37.0-47.0); MCH 28.6 pg (26.0-34.0); MCHC 32.7 g/dL (28.0-37.0); MCV 87.6 fL (80.0-100.0); RBC 3.84 mil/uL (4.20-5.00); WBC 10.2 thou/uL (4.0-11.0)
[2017-11-18 08:04] VITALS: BP 156/77
[2017-11-18 11:58] VITALS: BP 176/79
[2017-11-18 16:42] VITALS: BP 183/84
[2017-11-18 19:51] VITALS: BP 169/92
[2017-11-19 05:03] VITALS: BP 171/71
[2017-11-19 05:27] LABS: HEMATOCRIT 33.1 % (37.0-47.0); HEMOGLOBIN 10.8 gm/dL (12.0-15.0); MCH 28.7 pg (26.0-34.0); MCHC 32.6 g/dL (28.0-37.0); RBC 3.76 mil/uL (4.20-5.00); RDW 14.7 % (10.5-14.5)
[2017-11-19 05:28] LABS: ALBUMIN 2.3 g/dL (3.4-5.0); CALCIUM 8.5 mg/dL (8.5-10.1); CREATININE 0.8 mg/dL (0.6-1.0); POTASSIUM 4.9 mmol/L (3.5-5.1); TOTAL BILIRUBIN 0.4 mg/dL (<0.1-1.0); TOTAL PROTEIN 5.5 g/dL (6.4-8.2)
[2017-11-19 06:28] VITALS: BP 157/57
[2017-11-19 07:50] VITALS: BP 167/61
[2017-11-19 11:30] VITALS: BP 143/67
[2017-11-19 15:55] VITALS: BP 141/58
[2017-11-19 19:36] VITALS: BP 111/52
[2017-11-20 04:50] VITALS: BP 168/66
[2017-11-20 05:04] LABS: ANION GAP < 0 mmol/L (7-16); BUN 39 mg/dL (7-18); CALCIUM 8.5 mg/dL (8.5-10.1); CHLORIDE 101 mmol/L (98-107); CO2 36 mmol/L (21-32); CREATININE 0.8 mg/dL (0.6-1.0); GLUCOSE 88 mg/dL (74-106); POTASSIUM 4.7 mmol/L (3.5-5.1); SODIUM 136 mmol/L (136-145)
[2017-11-20 05:09] LABS: ABSOLUTE NEUTROPHILS 6.9 thou/uL (1.4-8.2); BASOPHILS 0.5 % (0.0-2.0); EOSINOPHILS 2.2 % (0.0-3.0); HEMATOCRIT 33.7 % (37.0-47.0); HEMOGLOBIN 11.3 gm/dL (12.0-15.0); LYMPHOCYTES 16.6 % (24.0-44.0); MCH 29.5 pg (26.0-34.0); MCHC 33.6 g/dL (28.0-37.0); MCV 87.8 fL (80.0-100.0); MONOCYTES 10.9 % (1.0-8.0); PLATELET COUNT 141 thou/uL (150-400); POLYS 69.8 % (36.0-66.0); RBC 3.84 mil/uL (4.20-5.00); RDW 14.8 % (10.5-14.5); WBC 9.9 thou/uL (4.0-11.0)
[2017-11-20 07:50] VITALS: BP 154/54
[2017-11-20 11:02] VITALS: BP 156/63
[2017-11-20 11:10] LABS: MAGNESIUM 2.5 mg/dL (1.8-2.4); PHOSPHORUS 3.7 mg/dL (2.5-4.9); TRIGLYCERIDE 187 mg/dL (<150)
[2017-11-20 16:36] VITALS: BP 115/45
[2017-11-20 20:42] VITALS: BP 181/60
[2017-11-21 04:59] VITALS: BP 149/53
[2017-11-21 06:23] LABS: HEMATOCRIT 32.8 % (37.0-47.0); HEMOGLOBIN 11.1 gm/dL (12.0-15.0); MCH 29.6 pg (26.0-34.0); MCHC 33.8 g/dL (28.0-37.0); MCV 87.4 fL (80.0-100.0); PLATELET COUNT 144 thou/uL (150-400); RBC 3.75 mil/uL (4.20-5.00); RDW 14.8 % (10.5-14.5); WBC 8.7 thou/uL (4.0-11.0)
[2017-11-21 06:33] LABS: CALCIUM 8.6 mg/dL (8.5-10.1); CREATININE 0.7 mg/dL (0.6-1.0); POTASSIUM 4.5 mmol/L (3.5-5.1)
[2017-11-21 08:05] VITALS: BP 127/41
[2017-11-21 08:18] LABS: ABSOLUTE NEUTROPHILS 5.5 thou/uL (1.4-8.2); ANISOCYTOSIS 1+; METAMYELOCYTES 1 %
[2017-11-21 10:47] VITALS: BP 144/49
[2017-11-21 12:14] LABS: MAGNESIUM 2.5 mg/dL (1.8-2.4); PHOSPHORUS 3.4 mg/dL (2.5-4.9)
[2017-11-21 15:55] VITALS: BP 133/61
[2017-11-21 19:59] VITALS: BP 178/78
[2017-11-22 04:23] VITALS: BP 177/66
[2017-11-22 07:30] VITALS: BP 149/93
== END 2017-11-22 11:43 | disposition hospice, inpatient (51) | DRG 871 ==
LOC: ER 05:43 → EROBS 06:39 → 2N 06:39
PROVIDERS: Emergency Medicine; Hospitalist; Nurse Practitioner
PROC: 05HB33Z Insertion of Infusion Device into Right Basilic Vein, Percutaneous Approach (ICD-10-PCS; principal; 2017-11-19)
DX: A41.9 Sepsis, unspecified organism (principal); J96.21 Acute and chronic respiratory failure with hypoxia; J69.0 Pneumonitis due to inhalation of food and vomit; E43 Unspecified severe protein-calorie malnutrition; N39.0 Urinary tract infection, site not specified; N17.9 Acute kidney failure, unspecified; I50.32 Chronic diastolic (congestive) heart failure; N82.3 Fistula of vagina to large intestine; Z68.1 Body mass index [BMI] 19.9 or less, adult; I13.0 Hypertensive heart and chronic kidney disease with heart failure and stage 1 through stage 4 chronic kidney disease, or unspecified chronic kidney disease; J45.901 Unspecified asthma with (acute) exacerbation; E78.00 Pure hypercholesterolemia, unspecified; E83.42 Hypomagnesemia; G62.9 Polyneuropathy, unspecified; D64.9 Anemia, unspecified; J44.9 Chronic obstructive pulmonary disease, unspecified; K57.90 Diverticulosis of intestine, part unspecified, without perforation or abscess without bleeding; N18.9 Chronic kidney disease, unspecified; M62.84 Sarcopenia; R41.0 Disorientation, unspecified; R13.10 Dysphagia, unspecified; K22.2 Esophageal obstruction; Z66 Do not resuscitate; K21.9 Gastro-esophageal reflux disease without esophagitis; I25.10 Atherosclerotic heart disease of native coronary artery without angina pectoris; E78.5 Hyperlipidemia, unspecified; G89.29 Other chronic pain; K59.09 Other constipation; Z90.710 Acquired absence of both cervix and uterus; Z87.891 Personal history of nicotine dependence; Z88.0 Allergy status to penicillin; Z88.2 Allergy status to sulfonamides; I25.2 Old myocardial infarction; Z95.1 Presence of aortocoronary bypass graft; Z99.81 Dependence on supplemental oxygen; Z79.899 Other long term (current) drug therapy
CPT/HCPCS: 10081; 27000